=== PATIENT | male | born 1990 | race Caucasian/White ===

== ENCOUNTER 2025-11-07 17:57 | Emergency (ER) | payer OTHER ==
[~2025-11-07] VITALS: Ht 175.3 cm; Wt 91.6 kg
[2025-11-07] MEDS ORDERED: KETOROLAC TROMETHAMINE 15 MG/ML VIAL ONE (18:38)
[2025-11-07] MEDS ORDERED: DIAZEPAM 5 MG TABLET ONE (18:39)
[2025-11-07] MEDS: IV NS 0.9% 1,000 ML BAG IV ONE (18:53)
[2025-11-07] MEDS: DIAZEPAM 5 MG TABLET PO ONE (18:54)
[2025-11-07] MEDS: KETOROLAC TROMETHAMINE 15 MG/ML VIAL IV ONE (18:54)
[2025-11-07 18:58] LABS: APPEARANCE,URINE CLEAR (CLEAR); BLOOD, URINE NEGATIVE Ery/uL (NEGATIVE); LEUKOCYTE ESTERASE ,URINE NEGATIVE (NEGATIVE); NITRITE, URINE NEGATIVE (NEGATIVE); UGLUCOSE NEGATIVE (NEGATIVE)
[2025-11-07 19:02] LABS: PLATELET COUNT (AUTO) 245 K/uL (150-450); RED BLOOD CELL COUNT(AUTO) 5.12 MIL/uL (4.5-6.0); RED CELL DISTRIBUTION WIDTH 12.4 % (11.5-15.0); WHITE BLOOD COUNT (AUTO) 6.3 K/uL (4.3-11.0)
[2025-11-07 19:17] LABS: CALCIUM, SERUM 9.0 mg/dL (8.5-10.1); CREATININE 0.8 mg/dL (0.6-1.3); SODIUM SERUM 143.0 mmol/L (136-145); UREA NITROGEN, BLOOD 7.0 mg/dL (7-18)
[2025-11-07] MEDS ORDERED: METH-647 PO (19:52)
[2025-11-07] MEDS ORDERED: LIDO30AD10 TP (19:52)
[2025-11-07] MEDS ORDERED: IBUP-1953 PO (19:52)
[2025-11-07 20:14] VITALS: BP 126/78; TEMP 98.5; O2SAT 99
== END 2025-11-07 20:14 | disposition home or self-care (01) ==
LOC: ER 18:10
DX: N20.0 Calculus of kidney (principal); R10.A2 Flank pain, left side; I10 Essential (primary) hypertension
CPT/HCPCS: 99283; 96374; 96361; 85025; 80048; 87086; 81003; 36415; J1885; J7030